=== PATIENT | male | born 1945 | race Caucasian/White ===

== ENCOUNTER 2016-09-07 08:03 | Emergency (ER) | payer MEDICARE, OTHER ==
[~2016-09-07] VITALS: Ht 185.4 cm; Wt 93.7 kg
[~2016-09-07 08:03] MED LIST: ASPI81 PO; PIOG15
[2016-09-07 08:06] VITALS: BP 166/93; PULSE 69; RESP 18; TEMP 97.8; O2SAT 97
[2016-09-07] MEDS ORDERED: METF500T PO (08:20)
[2016-09-07] MEDS ORDERED: LIPI10TA PO (08:20)
[2016-09-07] MEDS ORDERED: ACTO45TA8 PO (08:20)
[2016-09-07] MEDS ORDERED: LIDOCAINE 1%/EPINEPHrine 1:100,000 SOLN 20 ML VIAL INFIL ONE (08:30)
[2016-09-07] MEDS ORDERED: CLIN1CAP5 PO (08:41)
--- NOTE | 2016-09-07 08:41 | PD ---
HPI Chief Complaint: Bite or Sting Time Seen by Provider: 08:23 Travel History International Travel<30 days: No Contact w/Intl Traveler<30days: No Traveled to known affect area: No History of Present Illness HPI 71-year-old male complains of painful lump on the right axilla. Patient states that the lump started several days ago and has increased in size since then. Patient states that he has sharp burning pain to the area. Patient denies any pain radiation. Patient states that he is up-to-date with TD booster. PFSH Past Medical History High Cholesterol: Yes Diabetes: Yes Patient Takes Glucophage: Yes Diminished Hearing: No Tetanus Vaccination: Unknown Influenza Vaccination: Yes Past Surgical History Tonsillectomy: Yes Social History Alcohol Use: Yes (Occ.) Tobacco Use: No Substance Use: No Allergies-Medications (Allergen,Severity, Reaction): Coded Allergies: No Known Allergies (Verified , 09/07/16) Reported Meds & Prescriptions Reported Meds & Active Scripts Active Reported Lipitor (Atorvastatin Calcium) 10 Mg Tab 10 Mg PO HS Metformin (Metformin HCl) 500 Mg Tab 500 Mg PO BIDPC With meals Actos (Pioglitazone HCl) 45 Mg Tab 45 Mg PO DAILY Review of Systems General / Constitutional: No: Fever Eyes: No: Visual changes HENT: No: Headaches Cardiovascular: No: Chest Pain or Discomfort Respiratory: No: Shortness of Breath Gastrointestinal: No: Abdominal Pain Genitourinary: No: Dysuria Musculoskeletal: No: Pain Skin: No Rash Neurologic: No: Weakness Psychiatric: No: Depression Endocrine: No: Polydipsia Hematologic/Lymphatic: No: Easy Bruising Physical Exam Narrative GENERAL: Well-nourished, well-developed patient. SKIN: Warm and dry. HEAD: Normocephalic. EYES: No scleral icterus. No injection or drainage. NECK: Supple, trachea midline. No JVD or lymphadenopathy. CARDIOVASCULAR: Regular rate and rhythm without murmurs, gallops, or rubs. RESPIRATORY: Breath sounds equal bilaterally. No accessory muscle use. GASTROINTESTINAL: Abdomen soft, non-tender, nondistended. MUSCULOSKELETAL: No cyanosis, or edema. BACK: Nontender without obvious deformity. No CVA tenderness. Patient has a nodular lesion right axilla area redness swelling tenderness on palpation. Data Data Last Documented VS Vital Signs Date Time Temp Pulse Resp B/P Pulse Ox O2 Delivery O2 Flow Rate FiO2 09/07/16 08:06 97.8 69 18 166/93 97 Orders Lidocai-Epi 1%-1:100,000 Inj (Xylocaine- (09/07/16 08:30) MDM Medical Decision Making Medical Screen Exam Complete: Yes Emergency Medical Condition: Yes Differential Diagnosis Differential diagnosis including carbuncle, cellulitis, abscess. Narrative Course 71-year-old male infected nodular lesion right axilla. Procedures Procedure Narrative 1% lidocaine with epinephrine local anesthesia. Betadine wash. Small incision was made with #11 scalpel. A small amount of pus recovered. 0.25 inch packing applied. Dressing applied. Diagnosis Primary Impression: Abscess of right axilla Patient Instructions: General Instructions Additional Instructions: Clindamycin as directed. Wound care daily. Packing removal in 2 days. Follow- up with personal physician. Return if increasing redness swelling. Med/Other Pt SpecificInfo: Prescription(s) given Scripts Clindamycin 150 Mg Cap2 Tab PO Q6H #80 CAP Prov:Renny Ward MD 09/07/16 Disposition: 01 DISCHARGE HOME Condition: Stable Renny Ward MD Sep 07, 2016 08:41
== END 2016-09-07 08:54 | disposition home or self-care (01) ==
LOC: PHEFT 08:03
DX: L02.411 Cutaneous abscess of right axilla (principal)
CPT/HCPCS: 10061

== ENCOUNTER 2016-12-29 14:56 | Emergency (ER) | payer MEDICARE, OTHER ==
[~2016-12-29] VITALS: Ht 185.4 cm; Wt 91.9 kg
[~2016-12-29 14:56] MED LIST changes: +ACTO45TA8 PO; -ASPI81 PO; +CLIN1CAP5 PO; +LIPI10TA PO; +METF500T PO; -PIOG15
[2016-12-29 15:03] VITALS: BP 145/88; PULSE 87; RESP 16; TEMP 98.2; O2SAT 99
--- NOTE | 2016-12-29 15:06 | PD ---
HPI . Left index finger infection for about 5-6 days Chief Complaint: Skin Problem Time Seen by Provider: 15:06 Travel History International Travel<30 days: No Contact w/Intl Traveler<30days: No Traveled to known affect area: No History of Present Illness HPI 71-year-old male with history of diabetes here with complaints of left index finger infection for the past 5-6 days. Patient tells me that he was initially mowing his lawn and thinks something may have stung him. He reports redness and swelling to the distal portion of his left index finger that had initially worsened, but seems to be improving but at a slower than expected rate. This slow healing time is what prompted him to come to the emergency department. Patient denies any fluid collection or drainage. He denies any fever or chills. He's had no other complaints. He has full range of motion of his hand. He is accompanied by his . PFSH Past Medical History Hx Anticoagulant Therapy: Yes (325mg every other day) High Cholesterol: Yes Diabetes: Yes (type 2) Diminished Hearing: No Past Surgical History Tonsillectomy: Yes Social History Alcohol Use: Yes (Occ.) Tobacco Use: No Substance Use: No Allergies-Medications (Allergen,Severity, Reaction): Coded Allergies: No Known Allergies (Verified , 12/29/16) Reported Meds & Prescriptions Reported Meds & Active Scripts Active Reported Metformin (Metformin HCl) 500 Mg Tab 500 Mg PO DAILY With meals Actos (Pioglitazone HCl) 45 Mg Tab 45 Mg PO DAILY Review of Systems General / Constitutional: No: Fever Eyes: No: Visual changes HENT: No: Headaches Cardiovascular: No: Chest Pain or Discomfort Respiratory: No: Shortness of Breath Gastrointestinal: No: Abdominal Pain Genitourinary: No: Dysuria Musculoskeletal: No: Pain Skin: Positive Other (left index finger redness/swelling), No Rash Neurologic: No: Weakness Psychiatric: No: Depression Endocrine: No: Polydipsia Hematologic/Lymphatic: No: Easy Bruising Physical Exam Narrative GENERAL: AAO x 3, no acute distress, Well-nourished, well-developed patient. SKIN: Warm and dry. No visible rashes or bruising. left distal index finger proximal to PIP joint with erythema, mild edema, minimally warm to touch, mild induration without fluctuance. nontender HEAD: Normocephalic and atraumatic. EYES: No scleral icterus. No injection or drainage. ENT: No nasal drainage noted. Mucous membranes pink. Airway patent. NECK: Supple, trachea midline. No JVD. CARDIOVASCULAR: Regular rate and rhythm without murmurs, gallops, or rubs. RESPIRATORY: Breath sounds equal bilaterally. No accessory muscle use. No rhonchi or rales. GASTROINTESTINAL: visual inspection normal. EXTREMITIES: No cyanosis or edema. all digits of left hand move freely. BACK: Nontender without obvious deformity. No CVA tenderness. NEURO: CN II-12 intact, highway painter helper strength normal b/l, UE and LE 5/5, no focal deficits PSYCH: AAO x 3, normal affect. Data Data Last Documented VS Vital Signs Date Time Temp Pulse Resp B/P Pulse Ox O2 Delivery O2 Flow Rate FiO2 12/29/16 15:03 98.2 87 16 145/88 99 MDM Medical Decision Making Medical Screen Exam Complete: Yes Emergency Medical Condition: Yes Medical Record Reviewed: Yes Differential Diagnosis Finger cellulitis, abrasion, less likely shingles, insect bite Narrative Course 71-year-old male here with complaints of left index finger infection. He does appear to have a mild superficial cellulitis of the left index finger. I've advised around of antibiotics. I recommend cleaning the area with soap and water daily. We discussed the signs of worsening infection when to return to emergency department. Of note patient has an appointment with his account services manager on Saturday for the same issue. I recommend he keep that appointment. I provide him with Bactrim. I advised warm compresses and topical Neosporin as well. Patient verbalized understanding of instructions, questions were answered, and thanked me for their care. I advised them if their condition worsens, please return to the nearest emergency room for further care. Diagnosis Primary Impression: Cellulitis of left index finger Patient Instructions: General Instructions Additional Instructions: Please return to emergency department if your symptoms return or worsen. Follow up with your primary care provider. Take medications as prescribed. Keep area clean and dry. Watch for signs of infection: fever, redness, swelling, warmth, pus or drainage , red streaks around the cut, and increased pain from the area. Med/Other Pt SpecificInfo: Prescription(s) given Scripts Sulfamethoxazole-Trimethoprim (Bactrim DS)800-160 Mg Tab1 Tab PO BID #20 TAB Prov:Jill Gambino DO 12/29/16 Disposition: 01 DISCHARGE HOME Condition: Stable Ama Narvaez Dec 29, 2016 15:06
[2016-12-29] MEDS ORDERED: BACT800T5 PO (15:13)
== END 2016-12-29 15:17 | disposition home or self-care (01) ==
LOC: PHEFT 14:56
DX: L03.012 Cellulitis of left finger (principal); E11.9 Type 2 diabetes mellitus without complications; Z79.84 Long term (current) use of oral hypoglycemic drugs
CPT/HCPCS: 99283

== ENCOUNTER 2016-12-31 10:54 | Emergency (ER) | payer MEDICARE, OTHER ==
[~2016-12-31] VITALS: Ht 185.4 cm; Wt 91.7 kg
[~2016-12-31 10:54] MED LIST changes: +BACT800T5 PO; -CLIN1CAP5 PO; -LIPI10TA PO
[2016-12-31 10:57] VITALS: BP 150/89; PULSE 75; RESP 16; TEMP 98.3; O2SAT 98
[2016-12-31] MEDS ORDERED: ASPI81CH CHEW (11:06)
[2016-12-31] MEDS ORDERED: TETANUS/DIPHTHERIA TOXOID ADULT 0.5 ML VIAL IM ONE (11:15)
[2016-12-31] MEDS ORDERED: LIDOCAINE HCL 1% PF 30 ML VIAL INFIL ONE (11:15)
--- NOTE | 2016-12-31 11:26 | PD ---
HPI Chief Complaint: Skin Problem Time Seen by Provider: 11:10 Travel History International Travel<30 days: No Contact w/Intl Traveler<30days: No Traveled to known affect area: No History of Present Illness HPI 71-year-old male with a history of type 2 diabetes presents to the emergency room for reevaluation of an abscess to his left second finger. States one week ago he felt something sting him while he was mowing the lawn. The next day it was itchy. As the week progressed he had increasing redness around the area. Patient states 2 days ago he came to the emergency room and was given a prescription for Bactrim but feels his symptoms have worsened since then. He reports increased swelling and discoloration. States he saw some drainage from the small stinger area. Denies significant pain, fever, chills, nausea, vomiting. He has an appointment with his ship painter helper in 2 days for the same. PFSH Past Medical History Hx Anticoagulant Therapy: Yes (325mg every other day) High Cholesterol: Yes Diabetes: Yes (type 2) Patient Takes Glucophage: Yes Diminished Hearing: No Influenza Vaccination: Yes Past Surgical History Tonsillectomy: Yes Social History Alcohol Use: Yes (Occ.) Tobacco Use: No Substance Use: No Allergies-Medications (Allergen,Severity, Reaction): Coded Allergies: No Known Allergies (Verified , 12/31/16) Reported Meds & Prescriptions Reported Meds & Active Scripts Active Keflex (Cephalexin) 500 Mg Cap 500 Mg PO Q6H 10 Days Bactrim DS (Sulfamethoxazole-Trimethoprim) 800-160 Mg Tab 1 Tab PO BID Reported Aspirin 81 Mg Chew 81 Mg CHEW EVERY OTHER DAY Metformin (Metformin HCl) 500 Mg Tab 500 Mg PO DAILY With meals Actos (Pioglitazone HCl) 45 Mg Tab 45 Mg PO DAILY Review of Systems Except as stated in HPI: all other systems reviewed are Neg Physical Exam Narrative GENERAL: Well-nourished, well-developed male in no acute distress. Afebrile. Ambulatory. SKIN: Focused skin assessment warm/dry. There is an indurated area in the left second finger which measures about 2 cm in diameter. It is fluctuant but there is no pointing or drainage. There is a zone of inflammation around it but no lymphangitis. HEAD: Normocephalic. EYES: No scleral icterus. No injection or drainage. NECK: Supple, trachea midline. No JVD or lymphadenopathy. CARDIOVASCULAR: Regular rate and rhythm without murmurs, gallops, or rubs. RESPIRATORY: Breath sounds equal bilaterally. No accessory muscle use. MUSCULOSKELETAL: No cyanosis. Mild edema of the left second finger. Very limited range of motion of the left second MCP joint secondary to edema. Less than 2 second capillary refill distally. Data Data Last Documented VS Vital Signs Date Time Temp Pulse Resp B/P Pulse Ox O2 Delivery O2 Flow Rate FiO2 12/31/16 10:57 98.3 75 16 150/89 98 Orders Tetanus/Diphtheria Tox Adult (Tetanus/Di (12/31/16 11:15) Lidocaine Pf 1% Inj (Xylocaine-Mpf 1% In (12/31/16 11:15) Wound Culture And Gram Stain (12/31/16 11:40) MDM Medical Decision Making Medical Screen Exam Complete: Yes Emergency Medical Condition: Yes Medical Record Reviewed: Yes Differential Diagnosis Abscess, cellulitis, lymphangitis, edema Narrative Course 71-year-old male type 2 diabetes presents to the emergency room for reevaluation of an abscess to his left second finger that started 1 week ago and worsened 2 days ago. Patient was recently diagnosed with cellulitis and started on Bactrim but his symptoms have developed into an abscess. No systemic signs of an infection. Abscess was drained, see procedure note for details. Patient was discharged with instructions to continue Bactrim and follow up with his ship painter helper in 2 days or return for worsening symptoms. He understands and agrees with plan. Procedures Procedure Narrative INCISION AND DRAINAGE OF ABSCESS: The area was prepped and was sterilely draped. A subcutaneous wheal of 1% lidocaine with a total number 2 mL was used to anesthetize the area properly. A number 11 scalpel was used to make a 0.5 cm incision across the area of the abscess. The abscess was drained, complex loculations were broken down, and irrigated with normal saline. Cultures were obtained. Sterile dressing applied. Diagnosis Primary Impression: Abscess of left index finger Referrals: Metal Casket Assembler Primary Care Physician Patient Instructions: Abscess (ED), General Instructions Additional Instructions: Rest and drink plenty of fluids. Keflex as directed, until gone. Continue taking Bactrim as directed, until gone. Follow up with a primary care physician. Return to emergency room for worsening symptoms, as discussed. Med/Other Pt SpecificInfo: Prescription(s) given Scripts Cephalexin (Keflex)500 Mg [id number] Mg PO Q6H 10 Days Ref 0 Prov:Colton Sauceda MD 12/31/16 Disposition: 01 DISCHARGE HOME Condition: Stable Rose Mary Rincon Dec 31, 2016 11:26 Rose Mary Rincon Dec 31, 2016 11:26
[2016-12-31] MEDS ORDERED: CEPH-460 PO (11:42)
== END 2016-12-31 11:50 | disposition home or self-care (01) ==
LOC: PHEFT 10:54
DX: L02.512 Cutaneous abscess of left hand (principal); B95.62 Methicillin resistant Staphylococcus aureus infection as the cause of diseases classified elsewhere; E11.9 Type 2 diabetes mellitus without complications; E78.00 Pure hypercholesterolemia, unspecified; Z23 Encounter for immunization; Z79.84 Long term (current) use of oral hypoglycemic drugs; Z79.82 Long term (current) use of aspirin
CPT/HCPCS: 26010; 86403; 87070; 87186; 90471; 90714